=== PATIENT | male | born 1980 | race Caucasian/White ===

== ENCOUNTER 2017-08-12 06:10 | Emergency (ER) | payer BC ==
[2017-08-12] MEDS ORDERED: NS 0.9% 1000 ML* 1,000 ML IV ONE (06:31)
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
[2017-08-12 07:03] LABS: ABS Basophils 0 10^3/ul (0-0.2); ABS Eosinophils 0.1 10^3/ul (0-0.6); ABS Lymphocytes 1.3 10^3/ul (1.0-4.8); ABS Monocytes 0.6 10^3/ul (0-0.8); ABS Neutrophils 6.2 10^3/ul (1.5-7.7); ABS Nucleated RBC 0 10^3/ul; Eosinophil % 0.7 % (0-6); Hematocrit 50 % (42-52); Hemoglobin 17.6 g/dl (14.0-18.0); Lymphocyte % 16.3 % (25-47); Mean Corpuscular HGB Conc 35 g/dl (31-36); Mean Corpuscular Hemoglobin 31 pg (27-31); Mean Corpuscular Volume 87 fL (80-94); Mean Platelet Volume 8 um3 (7.4-10.4); Nucleated Red Blood Cells % 0.4; Platelet Count 228 10^3/ul (150-450); Red Blood Count 5.78 10^6/ul (4.0-5.4); Red Cell Distribution Width 14 % (10.5-15); White Blood Count 8.2 10^3/ul (3.5-10.8)
[2017-08-12 07:24] LABS: EGFR Non-African American 76.6 (>60)
--- NOTE | 2017-08-12 08:15 | RAD ---
CLINICAL HISTORY: Abdominal pain COMPARISON: April 07, 2012 TECHNIQUE: Multiple contiguous axial CT scans were obtained of the abdomen and pelvis, without intravenous contrast enhancement. Coronal and sagittal multiplanar reformations are submitted for review. Oral contrast was administered. FINDINGS: The study is limited by the lack of intravenous contrast. This limits evaluation of the solid organs and vasculature. LUNG BASES: On axial image 1, there is a 0.3 cm nodule of the right middle lobe. LIVER: The liver is normal in shape, size, contour, and attenuation. BILE DUCTS: There is no intrahepatic or extrahepatic biliary dilatation. GALLBLADDER: Multiple gallstones are noted. There is no pericholecystic inflammatory change. PANCREAS: The pancreas is normal, without mass or ductal dilatation. SPLEEN: The spleen is at the upper limits of normal in size measuring 12.8 cm in long axis. UPPER GI TRACT: Evaluation of the gastrointestinal tract is limited by incomplete gastric distention. The upper GI tract is unremarkable. SMALL BOWEL AND MESENTERY: The small bowel is normal in contour, course, and caliber. There is no obstruction or dilatation. COLON: The colon is normal in contour, course, caliber. There is no pericolonic inflammatory change. There is a tubular, vermiform, hollow viscus that is blind ending, and originates from the cecum, consistent with a normal appendix. There is no periappendiceal inflammatory change. This is best seen on axial images 53 through 59. ADRENALS: Normal bilaterally. KIDNEYS: The kidneys are normal in shape, size, contour, and axis. There is no hydronephrosis or nephrolithiasis. BLADDER: The bladder is smooth in contour. PELVIC ORGANS: The prostate gland is normal. The seminal vesicles are symmetric. AORTA: The aorta is normal. IVC: Unremarkable LYMPH NODES: There is no lymphadenopathy by size criteria. ABDOMINAL WALL: There is no evidence for abdominal wall hernia. BONES AND SOFT TISSUES: Mild degenerative changes are noted. OTHER: None IMPRESSION: 1. CHOLELITHIASIS. 2. NORMAL APPENDIX. 3. THE SPLEEN IS AT THE UPPER LIMITS OF NORMAL IN SIZE. 4. 0.3 CM RIGHT MIDDLE LOBE LUNG NODULE. THE RECOMMENDATIONS FOR FOLLOWUP AND MANAGEMENT OF AN INCIDENTALLY DETECTED PULMONARY NODULE LESS THAN 6 MM IN SIZE, IN A PATIENT WITHOUT A HISTORY OF MALIGNANCY, INCLUDE NO FOLLOWUP FOR A LOW-RISK PATIENT OR OPTIONAL FOLLOWUP CT IN 12 MONTHS FOR A HIGH RISK PATIENT. NOTES: SIZE = AVERAGE LENGTH AND WIDTH; HIGH RISK IS DEFINED A HISTORY OF SMOKING OR OTHER KNOW RISK FACTORS FOR LUNG CANCER; LOW RISK IS DEFINED MINIMAL OR ABSENT HISTORY OF SMOKING OR OTHER KNOWN RISK FACTORS. Jarrod Villatoro, HEIDE Thomas, APRIL Luna, et al (2017) "Guidelines for Management of Incidental Pulmonary Nodules Detected on CT Images: From the Fleischner Society 2017." Radiology; 284(1): 228-243. doi:10.1148/[id number]
[2017-08-12 09:10] VITALS: BP 127/86
--- NOTE | 2017-08-12 18:20 | ED ---
Darnell Salas Thomas, scribed for Miguel Reed MD on 08/12/17 at 0741 . Progress - Progress Note Progress Note: The patient is a 47 year old male signed out from Dr. Anderson, pending CT Abd/Pel and awaiting disposition. The patient is complaining of abdominal pain. At time of evaluation, the pain is somewhat relieved. The patient reports that earlier, he was nauseous and had dry heaves. The patient denies diarrhea and constipation. Past surgical history includes inguinal hernia repair. PHYSICAL EXAM: VITAL SIGNS: Reviewed. GENERAL: Patient is a well-developed and nourished male who is lying comfortable in the stretcher. Patient is not in any acute respiratory distress. HEAD AND FACE: Normocephalic and atraumatic. EYES: PERRLA, EOMI x 2, No injected conjunctiva. EARS: Hearing grossly intact. Ear canals and tympanic membranes are WNL. MOUTH: Oropharynx within normal limits. NECK: Supple, trachea is midline, no adenopathy, no JVD. CHEST: Symmetric, no tenderness at palpation LUNGS: Clear to auscultation bilaterally. No wheezing or crackles. CVS: RRR, S1 and S2 present, no murmurs or gallops appreciated. ABDOMEN: Soft, non-tender. No signs of distention. Positive bowel sounds. No rebound no guarding, and no masses palpated. No abdominal bruit or pulsations. EXTREMITIES: FROM in all major joints, no edema, no cyanosis or clubbing. NEURO: Alert and oriented x 3. No acute neurological deficits. Speech is normal. SKIN: Dry and warm Imaging: CT Abdomen/Pelvis Interpreted by radiologist. Impression: 1. CHOLELITHIASIS. 2. NORMAL APPENDIX. 3. THE SPLEEN IS AT THE UPPER LIMITS OF NORMAL IN SIZE. 4. 0.3 CM RIGHT MIDDLE LOBE LUNG NODULE. THE RECOMMENDATIONS FOR FOLLOWUP AND MANAGEMENT OF AN INCIDENTALLY DETECTED PULMONARY NODULE LESS THAN 6 MM IN SIZE, IN A PATIENT WITHOUT A HISTORY OF MALIGNANCY, INCLUDE NO FOLLOWUP FOR A LOW-RISK PATIENT OR OPTIONAL FOLLOWUP CT IN 12 MONTHS FOR A HIGH RISK PATIENT. NOTES: SIZE = AVERAGE LENGTH AND WIDTH; HIGH RISK IS DEFINED A HISTORY OF SMOKING OR OTHER KNOW RISK FACTORS FOR LUNG CANCER; LOW RISK IS DEFINED MINIMAL OR ABSENT HISTORY OF SMOKING OR OTHER KNOWN RISK FACTORS. Dr. Reed has reviewed this report. Assessment and Plan: The patient is a sign out from Dr. Anderson to follow up on the abdominal pelvic CT. The CT results are show earlier in this report. Since the patients symptoms are resolved, and the lab tests are negative, the patient will be discharged home to follow up with primary care. The patient is hemodynamically stable and alert and oriented x 3. Condition is stable. Disposition: Discharged home Course/Dx - Diagnoses Provider Diagnoses: Abdominal pain, Cholelithiasis, Pulmonary nodule The documentation as recorded by the Darnell segura Thomas accurately reflects the service I personally performed and the decisions made by Derek martinez Walter, MD.
== END 2017-08-12 09:09 ==
LOC: ED 06:10
DX: K80.20 Calculus of gallbladder without cholecystitis without obstruction (principal); R91.1 Solitary pulmonary nodule; Z91.041 Radiographic dye allergy status
CPT/HCPCS: 36415; 74176; 80053; 82150; 83690; 83735; 85025; 86140; 87040; 99282

== ENCOUNTER 2017-10-11 18:29 | Emergency (ER) | payer BC ==
[2017-10-11 19:52] LABS: Urine Appearance Cloudy; Urine Blood Negative (Negative); Urine Color Yellow; Urine Ketones Negative (Negative); Urine Protein Negative (Negative); Urine Specific Gravity 1.011 (1.010-1.030); Urine Urobilinogen Negative (Negative)
[2017-10-11] MEDS ORDERED: Ketorolac INJ* 30 MG/ML 1 ML VIAL IV PUSH ONE (20:52)
[2017-10-11] MEDS ORDERED: NS 0.9% 1000 ML* 1,000 ML IV ONE (20:53)
[2017-10-11 21:32] LABS: ABS Basophils 0 10^3/ul (0-0.2); ABS Eosinophils 0.1 10^3/ul (0-0.6); ABS Lymphocytes 1.7 10^3/ul (1.0-4.8); ABS Monocytes 0.6 10^3/ul (0-0.8); ABS Neutrophils 7.2 10^3/ul (1.5-7.7); ABS Nucleated RBC 0 10^3/ul; Eosinophil % 0.9 % (0-6); Hematocrit 47 % (42-52); Hemoglobin 16.3 g/dl (14.0-18.0); Mean Corpuscular HGB Conc 34 g/dl (31-36); Mean Corpuscular Hemoglobin 30 pg (27-31); Mean Corpuscular Volume 88 fL (80-94); Nucleated Red Blood Cells % 0.1; Platelet Count 247 10^3/ul (150-450); Red Blood Count 5.38 10^6/ul (4.0-5.4); Red Cell Distribution Width 13 % (10.5-15); White Blood Count 9.7 10^3/ul (3.5-10.8)
[2017-10-11 21:49] LABS: EGFR Non-African American 74.6 (>60)
--- NOTE | 2017-10-11 22:04 | RAD ---
INDICATION: Abdominal pain. COMPARISON: Comparison is made with a prior CT of the abdomen and pelvis from August 12 2017. TECHNIQUE: Supine and upright views of the abdomen were obtained. FINDINGS: The small bowel and colon appear nondistended. There are few scattered air-fluid levels within the small bowel. No free intraperitoneal air is seen. There are calcifications in the right upper quadrant which correlate with gallstones on the prior CT study. IMPRESSION: 1. CHOLELITHIASIS. 2. SMALL SCATTERED AIR-FLUID LEVELS IN THE SMALL BOWEL, NONSPECIFIC GAS PATTERN.
--- NOTE | 2017-10-11 22:08 | RAD ---
INDICATION: Abdominal pain. COMPARISON: Comparison is made with a prior CT of the abdomen and pelvis from August 12, 2017. TECHNIQUE: Multiple real-time images of the right upper quadrant were obtained. FINDINGS: There are multiple gallstones and sludge present. There is mild gallbladder wall thickening. No pericholecystic fluid or positive sonographic Love sign is present. No intra or extrahepatic ductal distention is present. The common bile duct measured 0.3 cm in diameter. The liver is normal in size without significant focal abnormality. The pancreas is partially obscured by overlying bowel gas. The right kidney is normal in size without evidence for hydronephrosis. IMPRESSION: GALLSTONES AND SLUDGE WITH MILD GALLBLADDER WALL THICKENING.
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
[2017-10-12 02:18] VITALS: BP 124/76
== END 2017-10-12 00:05 | disposition home or self-care (01) ==
LOC: ED 18:29
DX: K80.20 Calculus of gallbladder without cholecystitis without obstruction (principal)
CPT/HCPCS: 36415; 74019; 76705; 80053; 81003; 82150; 83690; 85025; 86140; 96360; 96374; 99284

== ENCOUNTER 2017-10-19 02:24 | Emergency (ER) | payer BC ==
[2017-10-19] MEDS ORDERED: Sucralfate TAB* 1 GM PO ONE (02:56)
[2017-10-19] MEDS ORDERED: Famotidine TAB* 20 MG PO ONE (02:56)
[2017-10-19 03:31] LABS: ABS Basophils 0 10^3/ul (0-0.2); ABS Eosinophils 0.1 10^3/ul (0-0.6); ABS Lymphocytes 1.4 10^3/ul (1.0-4.8); ABS Monocytes 0.6 10^3/ul (0-0.8); ABS Neutrophils 8.3 10^3/ul (1.5-7.7); ABS Nucleated RBC 0 10^3/ul; Eosinophil % 0.9 % (0-6); Hematocrit 47 % (42-52); Hemoglobin 16.3 g/dl (14.0-18.0); Lymphocyte % 13.1 % (25-47); Mean Corpuscular HGB Conc 35 g/dl (31-36); Mean Corpuscular Hemoglobin 30 pg (27-31); Mean Corpuscular Volume 87 fL (80-94); Mean Platelet Volume 9.1 um3 (7.4-10.4); Nucleated Red Blood Cells % 0; Platelet Count 228 10^3/ul (150-450); Red Blood Count 5.38 10^6/ul (4.0-5.4); Red Cell Distribution Width 13 % (10.5-15); White Blood Count 10.3 10^3/ul (3.5-10.8)
[2017-10-19 03:40] LABS: EGFR Non-African American 73.1 (>60)
[2017-10-19 04:43] VITALS: BP 132/76
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
--- NOTE | 2017-10-19 07:42 | RAD ---
HISTORY: Mid abdominal pain COMPARISONS: October 11, 2017 VIEWS: Frontal views of the abdomen. FINDINGS: BOWEL: There is a nonobstructive bowel gas pattern. There is a large amount of stool within the colon. CALCULI: Calculus noted in the right upper quadrant consistent with cholelithiasis. BONES AND SOFT TISSUES: There are no osseous abnormalities. OTHER FINDINGS: The lung bases are clear. There is no subphrenic gas. IMPRESSION: 1. NONOBSTRUCTIVE BOWEL GAS PATTERN. 2. CHOLELITHIASIS. 3. LARGE AMOUNT OF STOOL WITHIN THE COLON.
== END 2017-10-19 04:43 | disposition home or self-care (01) ==
LOC: ED 02:24
DX: K59.00 Constipation, unspecified (principal); R10.13 Epigastric pain; K80.20 Calculus of gallbladder without cholecystitis without obstruction; Z91.041 Radiographic dye allergy status
CPT/HCPCS: 36415; 74018; 80053; 83690; 85025; 99283; A9270-GY

== ENCOUNTER 2017-10-23 16:07 | Observation (INO) | payer BC ==
[2017-10-23] MEDS ORDERED: NS 0.9% 1000 ML* 1,000 ML IV ONE (16:27)
[2017-10-23] MEDS ORDERED: Ondansetron INJ* 2 MG/ML VIAL IV ONE (16:27)
[2017-10-23] MEDS ORDERED: Morphine VIAL* 4 MG/ML VIAL (1 ml vial) IV ONE (16:28)
[2017-10-23 16:47] LABS: ABS Basophils 0.1 10^3/ul (0-0.2); ABS Eosinophils 0.2 10^3/ul (0-0.6); ABS Lymphocytes 1.7 10^3/ul (1.0-4.8); ABS Monocytes 0.9 10^3/ul (0-0.8); ABS Nucleated RBC 0 10^3/ul; Eosinophil % 1.9 % (0-6); Hematocrit 49 % (42-52); Lymphocyte % 15.2 % (25-47); Mean Corpuscular HGB Conc 35 g/dl (31-36); Mean Corpuscular Hemoglobin 30 pg (27-31); Mean Corpuscular Volume 87 fL (80-94); Nucleated Red Blood Cells % 0.1; Platelet Count 313 10^3/ul (150-450); Red Blood Count 5.62 10^6/ul (4.0-5.4); Red Cell Distribution Width 13 % (10.5-15); White Blood Count 10.9 10^3/ul (3.5-10.8)
[2017-10-23 17:10] LABS: EGFR Non-African American 65.1 (>60)
--- NOTE | 2017-10-23 17:24 | RAD ---
Indication: RIGHT upper quadrant pain. History of cholelithiasis. Comparison: October 11, 2017 ultrasound and August 12, 2017 CT. Technique: RIGHT upper quadrant ultrasound. Report: Appropriate direction flow documented in the portal and hepatic veins. 15.0 cm liver is normal in echogenicity. Negative for focal hepatic lesions. Negative for intrahepatic biliary dilatation. 2.0 mm common bile duct. Adequately distended gallbladder with mildly thickened 4 mm wall is remarkable for cholelithiasis and biliary sludge with 1.4 cm immobile stone at the gallbladder neck. Negative for pericholecystic fluid. Positive for sonographic Love's sign. The pancreas is obscured secondary to bowel gas and body habitus limiting assessment. Negative for ascites. 11.4 cm RIGHT kidney is unremarkable. IMPRESSION: Cholelithiasis with immobile stone at the gallbladder neck, gallbladder wall thickening, and positive sonographic Love's sign concerning for early acute cholecystitis. Correlate with clinical assessment.
[2017-10-23] MEDS ORDERED: metroNIDAZOLE IV 500 MG/100ML* 500 MG/100 ML BAG IVPB ONE (17:42)
[2017-10-23] MEDS ORDERED: Ciprofloxacin 400MG IVPREMIX(* 400 MG/200 ML BAG IVPB ONE (17:42)
[2017-10-23] MEDS ORDERED: Piperacillin/Tazobac ADVAN(*) 3.375 GM in NS 0.9% 100 ML* 100 ML IVPB ONE (17:57)
[2017-10-23] MEDS ORDERED: Acetaminophen TAB* 325 MG PO PRN (17:57)
[2017-10-23] MEDS ORDERED: Morphine VIAL* 4 MG/ML VIAL (1 ml vial) IV PRN (17:57)
[2017-10-23] MEDS ORDERED: Ondansetron ODT TAB* 4 MG SL PRN (17:57)
[2017-10-23] MEDS ORDERED: Zosyn per Pharmacy* NOTE FOLLOW UP SCH (18:00)
[2017-10-23] MEDS: NS 0.9% 1000 ML* 1,000 ML IV SCH (19:17)
[2017-10-23 19:25] LABS: Urine Appearance Clear; Urine Blood Negative (Negative); Urine Color Straw; Urine Ketones Negative (Negative); Urine Protein Negative (Negative); Urine Specific Gravity 1.004 (1.010-1.030); Urine Urobilinogen Negative (Negative)
[2017-10-24] MEDS: Piperacillin/Tazobactam 13.5 GM IV 24 hour continuous infusion IVPB SCH ×2 (00:04)
[2017-10-24] MEDS: NS 0.9% 1000 ML* 1,000 ML IV SCH ×2 (03:52→22:11)
--- NOTE | 2017-10-24 08:53 | PN ---
Progress Note - Progress Note Date of Service: 10/24/17 SOAP: Subjective:Hospital Day#1 acute cholecystitis;minimal pain this morning,no nausea/vomiting [] Objective:afeb,VSS; lungs:clear bilat;heart:RRR;abd:+bs,soft,mild tenderness RUQ ,no guarding or rebound;no obvious masses or organomegaly;Ext:no edema , nontender [] Assessment:gb sono consistent with acute cholecystitis [] Plan:per Dr Magallanes to OR later today for laparoscopic cholecystectomy;NPO;IV fluids;IV abx;pain management []
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
[2017-10-24] MEDS ORDERED: fentaNYL* 50 MCG/ML 5 ML VIAL (250 MCG VIAL) ONE (14:20)
[2017-10-24] MEDS ORDERED: Midazolam* 1 MG/ML 5 ML VIAL (5 MG) ONE (14:20)
[2017-10-24] MEDS ORDERED: Ondansetron INJ* 2 MG/ML VIAL ONE (14:20)
[2017-10-24] MEDS ORDERED: Lidocaine 2% PF * 5 ML VIAL ONE (14:20)
[2017-10-24] MEDS ORDERED: Ketorolac INJ* 30 MG/ML 1 ML VIAL ONE (14:20)
[2017-10-24] MEDS ORDERED: Cisatracurium* 2 MG/ML MDV 5 ML ONE (14:20)
[2017-10-24] MEDS ORDERED: Propofol* 10 MG/ML 20 ML BTL IV PUSH ONE (14:20)
[2017-10-24] MEDS ORDERED: Bupivacaine 0.25% SDV* 30 ML ONE (14:26)
[2017-10-24] MEDS ORDERED: Lidocaine 1% MPF wEPI 200,000* 30 ML SDV ONE (14:26)
[2017-10-24] MEDS ORDERED: Glycopyrrolate IV* 0.2 MG/ML 1 ML VIAL ONE (16:19)
[2017-10-24] MEDS ORDERED: Neostigmine Methylsulfate* 1 MG/ML 10 ML VIAL (1 mg/ml) ONE (16:19)
[2017-10-24] MEDS ORDERED: fentaNYL* 50 MCG/ML 2 ML VIAL (100 MCG VIAL) ONE ×2 (16:23→17:16)
[2017-10-24] MEDS ORDERED: Naloxone* 0.4 MG/ML 1 ML VIAL IV PRN (17:14)
[2017-10-24] MEDS ORDERED: HYDROmorphone INJ* 1 MG/ML CARPUJECT SYRINGE IV PRN (17:14)
[2017-10-24] MEDS ORDERED: fentaNYL* 50 MCG/ML 2 ML VIAL (100 MCG VIAL) IV PRN (17:14)
[2017-10-24] MEDS ORDERED: Ondansetron INJ* 2 MG/ML VIAL IV PRN (17:14)
[2017-10-24] MEDS ORDERED: HYDROmorphone INJ* 2 MG/ML CARPUJECT SYRINGE ONE (17:24)
[2017-10-24] MEDS ORDERED: oxyCODONE/Acetamin 5/325 MG* TAB PO PRN (18:30)
[2017-10-24] MEDS ORDERED: Morphine VIAL* 4 MG/ML VIAL (1 ml vial) IV PRN (18:30)
[2017-10-25] MEDS: Piperacillin/Tazobactam 13.5 GM IV 24 hour continuous infusion IVPB SCH ×2 (01:46)
[2017-10-25] MEDS: NS 0.9% 1000 ML* 1,000 ML IV SCH (05:32)
--- NOTE | 2017-10-25 09:49 | PN ---
Progress Note - Progress Note Date of Service: 10/25/17 Note: S: POD #1. Seen w/ Dr. Magallanes. Tonia diet. Pain controlled. No N/V. Not been ambulating much yet. O: Vital Signs - 8 hr 10/25/17 10/25/17 10/25/17 03:50 07:18 08:28 Temperature 98.3 F Pulse Rate 83 Respiratory 16 18 18 Rate Blood Pressure 98/44 (mmHg) O2 Sat by Pulse 97 97 Oximetry Intake and Output Last 24 Hours 10/23/17 10/24/17 10/25/17 10/26/17 06:59 06:59 06:59 06:59 Intake Total 1210 4376 Output Total 750 2725 Balance 460 1651 Weight 170 lb Intake: IV Fluids 1000 2984 NS (0.9%) 1384 lr 1600 IVPB 210 152 ABX - ZOSYN 105 152 Oral 0 1240 Output: ERON #1 100 Urine 750 2625 Gen: NAD; comfortable Abd: lap sites ok; small amt dried blood at umbilicus; ERON: serosang-> d/c'd; DSD placed A: s/p lap anson for acute cholecystitis, doing well P: home today; instructions reviewed.
[2017-10-25 11:47] VITALS: BP 114/68
--- NOTE | 2017-10-25 17:53 | DS ---
CC: Dr. Mustapha Noel, [facility] * DISCHARGE SUMMARY: DATE OF ADMISSION: 10/23/17 DATE OF DISCHARGE: 10/25/17 ATTENDING SURGEON: Dr. Andrés Magallanes.* (DICTATED BY MAXIMO MACARIO) HOSPITAL COURSE: Please refer to admission history and physical and operative note details. Briefly, the patient was admitted on 10/23/17 with evidence of acute cholecystitis with cholelithiasis. He was treated with IV antibiotics ( Zosyn). He was taken to the operating room on 10/24/[address] Magallanes and underwent laparoscopic cholecystectomy with findings at the time of surgery of acute cholecystitis. A Huan-Gallagher drain was left in place overnight and the patient was kept overnight for IV antibiotics. As of the morning of discharge, he was doing well, tolerating diet and pain under good control. PHYSICAL EXAMINATION: Temperature 98.5, blood pressure 120/70, pulse 73, respirations 16, room air saturation 99%. Huan-Gallagher drain was removed and dry sterile dressing placed. IMPRESSION: Status post laparoscopic cholecystectomy for acute cholecystitis with cholelithiasis, doing well. PLAN: Home today. Instructions were reviewed regarding wound care, diet and activity. He will remain out of work until at least after seen in the office for followup, which will be 11/02/17 in our office. Prescription sent for [place] to his pharmacy. MAXIMO MACARIO [id number]/[facility] #: [id number] [facility]
--- NOTE | 2017-10-27 05:47 | OP ---
CC: Mustapha Noel MD, [place], [place] * DATE OF OPERATION: 10/24/17 - ROOM #347 DATE OF : 84 SURGEON: Andrés Magallanes MD REBRANDER: MAXIMO Fischer ANESTHESIOLOGIST: Dr. Cain. ANESTHESIA: General with local. PRE-OP DIAGNOSIS: Acute calculous cholecystitis. POST-OP DIAGNOSIS: Acute calculous cholecystitis. OPERATIVE PROCEDURE: Laparoscopic cholecystectomy. ESTIMATED BLOOD LOSS: Less than 100 cc. IV FLUIDS: 1.5 L crystalloids. SPECIMENS: Gallbladder with contained gallstones. DRAINS: A #10 ERON drain in the right upper quadrant. WOUND CLASSIFICATION: Four. COMPLICATIONS: None. FINDINGS: The patient had acute calculous cholecystitis with a large distended thick walled gallbladder and several large gallstones within the gallbladder itself. BRIEF HISTORY: Mr. Zana Collins is a 37-year-old gentleman who presented to the emergency room with several days of epigastric and right upper quadrant abdominal discomfort. He had some previous left-sided abdominal discomfort and a CAT scan almost 2 months ago that was unremarkable, but he was noted to have gallstones. Recently an ultrasound of the gallbladder was obtained on this admission which showed a mildly thickened gallbladder wall with sludge and gallstones. He had tenderness in the right upper quadrant and a Love sign on the ultrasound as well. After discussion with the patient and his , it was felt he has calculous cholecystitis and I recommended that he proceed with a laparoscopic cholecystectomy. The procedure was discussed with them and the risks of, but not limited to, of bleeding, infection, intraabdominal abscess formation, injury to peritoneal and retroperitoneal structures, common bile duct injury, bile leak, abscess formation, possibility of an open procedure were all explained. Risk of anesthesia, deep vein thrombosis and also recovery times and hospital stay were also explained. DESCRIPTION OF PROCEDURE: Written informed consent was obtained, the abdomen was marked with indelible ink and preoperative antibiotics were administered. The patient was taken to the operating room and placed in the supine position. Sequential compression devices were placed in the lower extremities. Warming blanket was applied. General anesthesia was administered. The abdomen was prepped and draped in the usual sterile fashion. Time-out verification was completed. Initially a small transverse incision was made just above the umbilicus at the midline and the peritoneal cavity was entered under direct vision. The 12-mm blunt port was inserted and the abdomen was insufflated to 15 mmHg. Under direct vision, an 11-mm epigastric port was placed and two 5-mm ports were placed in the right side of the abdominal wall. The gallbladder was identified. It was thick walled and whitish in color and had omental adhesions to it. These findings were all consistent with acute calculous cholecystitis. There was a small amount of pericholecystic fluid. The liver appeared to be unremarkable. The gallbladder was grasped and elevated over the liver bed and the omental adhesions were taken down sharply also with the use of cautery. We did inadvertently enter the gallbladder when grasping, and there was a large amount of thick blackish bile that was suctioned throughout the remainder of the case. No stones were spilled. With care, the thickened peritoneum along the medial and lateral aspects of the gallbladder area at the infundibulum was taken down through acutely inflamed edematous tissue. I was able to identify the cystic duct and artery as I entered the gallbladder and these were both of normal caliber. I took a considerable portion of the inferior part of the gallbladder off the liver bed using the critical view technique to assure myself of these 2 structures as they entered the gallbladder. The cystic duct and artery were then doubly clipped and divided. The gallbladder was removed from the liver bed. This was somewhat tedious as the gallbladder was quite adherent and there was some bleeding from the liver bed which was controlled with cautery. The gallbladder was then placed in an EndoCatch bag and brought out through the umbilical incision without difficulty. There were 2 large stones palpable in the gallbladder itself. I then thoroughly irrigated the right upper quadrant and above the liver as well with almost 2 L of saline. This was irrigated until clear. Hemostasis was assured. With the amount of bile spilled, I did place a #10 ERON drain in the right upper quadrant which was brought out through the right lateral port site and sutured to the skin with a 3-0 Prolene suture. All ports were removed under direct vision of the camera. The umbilical fascia was closed with an interrupted 0 Polysorb suture. The skin at all 3 incisions was approximated with subcuticular 4-0 Polysorb suture. Steri-Strips were applied. The patient tolerated the procedure well, was taken to the recovery room in stable condition. [id number]/[facility] #: [id number] [facility]
== END 2017-10-25 11:45 | disposition home or self-care (01) ==
LOC: ED 16:07 → SSU 17:55
PROVIDERS: ADMIT Surgery; ATTEND Surgery
PROC: 0FT44ZZ Resection of Gallbladder, Percutaneous Endoscopic Approach (ICD-10-PCS; principal; 2017-10-23)
DX: K80.10 Calculus of gallbladder with chronic cholecystitis without obstruction (principal); R10.11 Right upper quadrant pain
CPT/HCPCS: 36415; 76705; 80053; 81003; 83605; 83690; 85025; 86140; 88304; 96374; 96375; 99283; A9270-GY; G0378; J0744; J1170; J1885; J2001; J2250; J2270; J2405; J2543; J2704; J2710; J3010; J3490